=== PATIENT | female | born 1940 | race Caucasian/White ===

== ENCOUNTER 2023-09-19 10:09 | Emergency (ER) | payer MEDICARE, SELFPAY ==
[2023-09-19 10:09] VITALS: BP 171/69; PULSE 85; RESP 16; TEMP 36.5; O2SAT 97; BMI 28.5
--- NOTE | 2023-09-19 10:31 | CT_ITS ---
STUDY: CT FACIAL BONES WITHOUT CONTRAST REASON FOR EXAM: Female, 82 years old. Facial injury due to a fall. RADIATION DOSAGE (If Supplied By Facility): CTDIvol = ( 29.38 ) mGy, DLP = ( 606.22 ) mGycm TECHNIQUE: The patient was scanned in a multi detector CT scanner. Sagittal and coronal images were reconstructed. Individualized dose optimization techniques were used for this CT. COMPARISON: None. FINDINGS: Normal soft tissue structures. Normal orbital peterson and orbital contents. Normal nasal bones and anterior nasal spine. Normal facial bones. There is no demonstrated fracture. Normal visualized paranasal sinuses. CT/Sinus/Facial Bone IMPRESSION: Normal unenhanced CT of the facial bones. Electronically Signed: Saad Goss MD at 11:14 EDT ,
--- NOTE | 2023-09-19 10:31 | CT_ITS ---
STUDY: CT BRAIN WITHOUT CONTRAST REASON FOR EXAM: Female, 82 years old. Head injury due to a fall. RADIATION DOSAGE (If Supplied By Facility): CTDIvol = ( 44.99 ) mGy, DLP = ( 812.98 ) mGycm TECHNIQUE: Transaxial CT imaging of the brain was performed without administration of intravenous contrast material. Individualized dose optimization techniques were used for this CT. COMPARISON: Comparison is made with prior study dated October 04, 2012. FINDINGS: Normal soft tissue structures. There is hyperostosis frontalis internus. There is mild cerebral atrophy with widening of the extra-axial spaces and ventricular dilatation. Normal white matter tracts of the cerebral hemispheres. Normal basal ganglia and thalami. Normal brainstem. Normal cerebellum. There is no intracranial hemorrhage. There are no findings of an acute ischemic infarction. Atherosclerotic calcification of the cavernous portions of the internal carotid arteries bilaterally. Normal visualized paranasal sinuses. CT/Brain/Head without Contrast IMPRESSION: Chronic involutional changes of the brain. Electronically Signed: Saad Goss MD at 11:16 EDT ,
--- NOTE | 2023-09-19 10:32 | ED.VIS.FALL ---
HPI HPI - Fall History of Present Illness Chief Complaint: Fall Informant: patient Occured/Mechanism Occurred: Today Narrative Narrative: Patient presents after fall at home. She was watering her magana this morning when she tripped on the edging of the landscape. She fell forward onto the grass. She has bruising and swelling noted to the left side of her face. No loss of consciousness. Patient is currently on Eliquis for history of paroxysmal A-fib. [facility] Medical History (Updated 09/19/23 @ 11:[address] Ngozi Lance MD) Paroxysmal A-fib Hypertension Hypothyroidism SVT (supraventricular tachycardia) Home Medications ?Medication ?Instructions ?Recorded ?Last Taken ?Type cholecalciferol (vitamin D3) 50 2,000 unit PO DAILY SUPPLEMENT 02/25/17 02/25/17 History mcg (2,000 unit) capsule (Vitamin D3) doxycycline monohydrate 100 mg 50 mg PO DAILY SKIN 02/25/17 02/25/17 History capsule hydrochlorothiazide 12.5 mg tablet 12.5 mg PO DAILY ATER 02/25/17 02/25/17 History levothyroxine 137 mcg tablet 137 mg PO MOTUWETHFRSA THYROID 02/25/17 02/25/17 History levothyroxine 137 mcg tablet 274 mcg PO WATSON THYROID 02/25/17 02/20/17 History magnesium 250 mg tablet 250 mg PO DAILY SUPPLEMENT 02/25/17 02/25/17 History raloxifene 60 mg tablet 60 mg PO DAILY BONE HEALTH 02/25/17 02/25/17 History diltiazem HCl 120 mg 120 mg PO Q12 ##60 02/26/17 Unknown Rx capsule,extended release 24 hr apixaban 5 mg tablet (Eliquis) 5 mg PO BID 09/19/23 Unknown History flecainide 50 mg tablet 50 mg PO BID 09/19/23 Unknown History vitamins A,C,N-gpan-izfaoa 2,148 2 tab PO BID 09/19/23 Unknown History mcg-113 mg-45 mg-17.4 mg tablet (Eye Multivitamin) Allergy/AdvReac Type Severity Reaction Status Date / Time clindamycin Allergy Hives Verified 09/19/23 10:09 Penicillins Allergy Other Verified 09/19/23 10:09 Surgical History Status post placement of cardiac pacemaker Social History Smoking Status: Never smoker ROS ROS ED Constitutional Constitutional ED: Denies chills or fever(s) Eyes Eyes: Denies change in vision or discharge from eye(s) ENT ENT ED: Denies discharge from eye(s), rhinorrhea or sore throat Cardiovascular Cardiovascular: Denies chest pain or palpitations Respiratory/Chest Respiratory/Chest: Denies cough or dyspnea Gastrointestinal Gastrointestinal: Denies abdominal pain, nausea or vomiting Musculoskeletal Musculoskeletal: Denies back pain, extremity pain or neck pain Integumentary Reports other Details: Ecchymosis and edema left face ; Denies rash Neurologic Neurologic: Denies headache(s) or weakness Psychiatric Psychiatric: Denies anxiety or depression Allergic/Immunologic Allergic/Immunologic ED: Denies lip swelling or urticaria EXAM Physical Exam Const Vital Signs: 09/19/23 10:09 09/19/23 10:57 Temperature 97.7 F L Temperature Source Temporal Pulse Rate 85 Respiratory Rate 16 Respiratory Effort Normal Respiratory Depth Normal Respiratory Pattern Normal Blood Pressure 171/69 H Blood Pressure Mean 103 Pulse Ox 97 Oxygen Delivery Method Room Air Room Air Positive well nourished and well developed General Appearance ED: well developed HEENT Reports normocephalic HEENT Narrative: Ecchymosis and mild swelling to the left maxilla and just superior to the left eye. Eye itself is unremarkable. Extraocular movements intact. No open wounds or bleeding. Eyes EOMs intact bilaterally Chest Wall inspection of chest normal and palpation of chest normal Resp normal respiratory effort and clear to auscultation bilaterally Cardio regular rate and regular rhythm GI non-tender Palpation: soft Neuro oriented x3 and moves all extremities Sensorium / Orientation: alert MDM MDM MDM Narrative Medical decision making narrative: CT scan of the head and facial bones obtained given patient's injury with anticoagulation. Radiography Diagnostic Testing: Clinical Impression(s) from Imaging Studies Brain CT 09/19/23 10:31 IMPRESSION: Chronic involutional changes of the brain. Electronically Signed: Saad Goss MD at 11:16 EDT , Facial/Sinus 09/19/23 10:31 IMPRESSION: Normal unenhanced CT of the facial bones. Electronically Signed: Saad Goss MD at 11:14 EDT , Treatment and Re-Evaluation Narrative: CT scan of the head reveals chronic involutional changes. CT scan of the facial bones reveals no evidence of fracture. Test results discussed with the patient. She is given monitoring instructions for close head injuries. Return instructions provided. Discharge Plan Triage Chief Complaint: Fall ED Provider: Ngozi Lance Dx/Rx/DC Orders Clinical Impression: Fall, Closed head injury Instructions: ED Concussion, ED Mechanical Fall, ED Head Injury (Adult) Prescriptions: No Action levothyroxine 137 MCG tablet 137 mg PO MOTUWETHFRSA Patient Comments: levothyroxine 137 MCG tablet 274 mcg PO WATSON Patient Comments: raloxifene 60 MG tablet 60 mg PO DAILY Patient Comments: hydrochlorothiazide 12.5 MG tablet 12.5 mg PO DAILY Patient Comments: doxycycline monohydrate 100 MG capsule 50 mg PO DAILY magnesium 250 MG tablet 250 mg PO DAILY cholecalciferol (vitamin D3) [Vitamin D3] 2,000 UNIT capsule 2,000 unit PO DAILY diltiazem HCl 120 MG capsule 120 mg PO Q12 Qty: 60 0RF Eye Multivitamin 2,148 mcg-113 mg-45 mg-17.4mg tablet 2 tab PO BID Rx Instructions: administer with AM and PM meals flecainide 50 mg tablet 50 mg PO BID Eliquis 5 mg tablet 5 mg PO BID Primary Care Provider: Partha Lao Referrals: Partha Lao DO [Primary Care Provider] - 1-2 Weeks Print Language: Scottish Disposition Disposition: Home, Self Care
[2023-09-19 11:32] VITALS: BP 169/75; PULSE 87; RESP 16; O2SAT 99
== END 2023-09-19 11:33 | disposition home or self-care (01) ==
PROVIDERS: Emergency Provider Emergency Medicine; PCP Student in an Organized Health Care Education/Training Program; Visit Provider Emergency Medicine
DX: S09.90XA Unspecified injury of head, initial encounter (principal); I48.0 Paroxysmal atrial fibrillation; E03.9 Hypothyroidism, unspecified; W19.XXXA Unspecified fall, initial encounter; Z79.01 Long term (current) use of anticoagulants; Z79.899 Other long term (current) drug therapy; Z95.0 Presence of cardiac pacemaker
CPT/HCPCS: 70450; 70486; 99282